=== PATIENT | male | born 1975 | race Caucasian/White ===

== ENCOUNTER 2018-11-17 19:20 | Emergency (ER) | payer OTHER ==
[2018-11-17 19:47] VITALS: BP 144/86; PULSE 79; TEMP 98.3; BMI 30.3
[2018-11-17] MEDS ORDERED: FLUORESCEIN NA 1 EA STRIP ONE (20:09)
[2018-11-17] MEDS ORDERED: TETRACAINE 0.5% OPHTH SOLN 2 ML BOTTLE ONE (20:09)
[2018-11-17] MEDS ORDERED: ERYTHROMYCIN 0.5% OPHTHALMIC OINTMENT 3.5 GM TUBE ONE (20:32)
--- NOTE | 2018-11-17 20:40 | PDOC ---
History of Present Illness - General History Source: Patient Exam Limitations: Language Barrier (Co-worker translated due to a language barrier. ) - History of Present Illness Initial Comments: 11/17/18 20:55 The patient is a 43 year old male, with no significant past medical history of who presents to the emergency department with R eye irritation. The patient states, he was scraping the ceiling when small pieces of paint fell in his R eye. The patient states he started cleaning his eye with tissue paper, however, he quickly stopped due to the irritation.The patient states he feels a warm sensation on his right eye. The patient denies any change in vision or blurry vision. The patient denies chest pain, shortness of breath, headache or dizziness. Allergies: NKDA Past surgical history: None reported Social history: social drinker. Tobacco use (half a pack of cigarettes daily). <Rhys Bearden - Last Filed: 11/17/18 23:02> <Ning Jackson - Last Filed: 11/18/18 03:58> - General Chief Complaint: Eye Problem Stated Complaint: RT EYE IRRITATION, FB SENSATION Time Seen by Provider: 11/17/18 19:29 Past History <Rhys Bearden - Last Filed: 11/17/18 23:02> - Past Medical History COPD: No Other medical history: PT DENIES - Suicide/Smoking/Psychosocial Hx Smoking History: Current every day smoker Have you smoked in the past 12 months: Yes Number of Cigarettes Smoked Daily: 7 Information on smoking cessation initiated: Yes Hx Alcohol Use: ("weekend") <Ning Jackson - Last Filed: 11/18/18 03:58> - Past Medical History Allergies/Adverse Reactions: Allergies Allergy/AdvReac Type Severity Reaction Status Date / Time No Known Allergies Allergy Verified 11/17/18 19:22 Home Medications: Ambulatory Orders Ciprofloxacin 0.3% Eye Drops [Ciloxan 0.3% Eye Drops --] 2 drop OD Q4HWA #1 bottle 11/17/18 Review of Systems - Review of Systems Able to Perform ROS?: Yes Comments:: 11/17/18 20:56 GENERAL/CONSTITUTIONAL: No fever or chills. No weakness. HEAD, EYES, EARS, NOSE AND THROAT:(+) R eye irritation. No change in vision. No ear pain or discharge. No sore throat. CARDIOVASCULAR: No chest pain or shortness of breath. RESPIRATORY: No cough, wheezing, or hemoptysis. GASTROINTESTINAL: No nausea, vomiting, diarrhea or constipation. GENITOURINARY: No dysuria, frequency, or change in urination. MUSCULOSKELETAL: No joint or muscle swelling or pain. No neck or back pain. SKIN: No rash NEUROLOGIC: No headache, vertigo, loss of consciousness, or change in strength/ sensation. ENDOCRINE: No increased thirst. No abnormal weight change. HEMATOLOGIC/LYMPHATIC: No anemia, easy bleeding, or history of blood clots. ALLERGIC/IMMUNOLOGIC: No hives or skin allergy. <Rhys Bearden - Last Filed: 11/17/18 23:02> *Physical Exam - Vital Signs Last Vital Signs Temp Pulse Resp BP Pulse Ox 98.3 F 79 18 144/86 97 11/17/18 19:20 11/17/18 19:20 11/17/18 19:20 11/17/18 19:20 11/17/18 19:20 - Physical Exam Comments: 11/17/18 20:56 GENERAL: Awake, alert, and fully oriented, in no acute distress HEAD: No signs of trauma EYES: (+) moderate erythema lateral and inferior aspect of the conjunctiva sac with 2 minute (1mm) whitish specks seen in lower conjunctiva sac. No other lesions, remainder of eye exam is normal. PERRLA, EOMI, sclera anicteric. ENT: Auricles normal inspection, hearing grossly normal, nares patent, oropharynx clear without exudates. Moist mucosa NECK: Normal ROM, supple, no lymphadenopathy, JVD, or masses LUNGS: Breath sounds equal, clear to auscultation bilaterally. No wheezes, and no crackles HEART: Regular rate and rhythm, normal S1 and S2, no murmurs, rubs or gallops ABDOMEN: Soft, nontender, normoactive bowel sounds. No guarding, no rebound. No masses EXTREMITIES: Normal range of motion, no edema. No clubbing or cyanosis. No cords, erythema, or tenderness NEUROLOGICAL: Cranial nerves II through XII grossly intact. Normal speech, normal gait SKIN: Warm, Dry, normal turgor, no rashes or lesions noted. <Rhys Bearden - Last Filed: 11/17/18 23:02> - Vital Signs Last Vital Signs Temp Pulse Resp BP Pulse Ox 98.3 F 79 18 144/86 97 11/17/18 19:20 11/17/18 19:20 11/17/18 19:20 11/17/18 19:20 11/17/18 19:20 <Ning Jackson - Last Filed: 11/18/18 03:58> Medical Decision Making - Medical Decision Making Documentation has been prepared under my direction and personally reviewed by me in its entirety. I attest that this documented accurately reflects all work, treatment, procedures and medical decision making performed by me. As noted above, this 43-year-old man presents with several hour history of right eye irritation/discomfort after apparent foreign body fell into the lower lid area as he was scraping paint from a ceiling. After patient attempted to remove foreign body, a friend apparently attempted to also remove the foreign body with a tissue. Neither was apparently able to take out the apparent foreign bodies. Patient denies vision changes or any other symptoms other than discomfort in the area of the foreign body. Exam as noted above. 2 drops of tetracaine ophthalmic solution placed in the right eye. Fluorescein strip used to place contrast in the area of the cornea: No evidence of corneal abrasion after area was illuminated with blue light. Then, using sterile technique, sterile normal saline used to irrigate lower conjunctival sac in order to dislodge tiny white foreign bodies. Irrigation was unsuccessful and sterile applicator used to gently attempt direct removal of specks. This also was unsuccessful. Area will be treated with erythromycin ointment: First application placed now. After this, ciprofloxacin ophthalmic solution will be used during the day (2 drops in the right eye every 4 hours while awake). Erythromycin ointment will be used at night. Patient given referral information for ophthalmologists: Dr Almanza/Dr Newell . The patient will call the office on Tuesday morning, November 20 and arrange for follow-up within 48 hours. If symptoms worsens prior to evaluation by foundry patternmaker, patient should return to the ER <Ning Jackson - Last Filed: 11/18/18 03:58> *DC/Admit/Observation/Transfer - Attestations Scribe Attestion: 11/17/18 20:57 Documentation prepared by Rhys Bearden, acting as medical resident for Ning Jackson MD <Rhys Bearden - Last Filed: 11/17/18 23:02> <Ning Jackson - Last Filed: 11/18/18 03:58> Diagnosis at time of Disposition: FB in conjunctival sac Qualifiers: Encounter type: initial encounter Laterality: right Qualified Code(s): T15.11XA - Foreign body in conjunctival sac, right eye, initial encounter - Discharge Dispostion Disposition: HOME Condition at time of disposition: Stable - Prescriptions Prescriptions: Ciprofloxacin 0.3% Eye Drops [Ciloxan 0.3% Eye Drops --] 2 drop OD Q4HWA #1 bottle - Referrals Referrals: Mynor Almanza MD [Staff Physician] - 3 days - Patient Instructions Printed Discharge Instructions: DI for Foreign Body in the Eye Additional Instructions: Erythromycin ointment to lower portion of the right eye at bedtime Ciprofloxacin eyedrops every 4 hours while awake during the day Keep head elevated as much as possible Motrin/Tylenol/Aleve as needed for pain Follow-up with foundry patternmaker (Dr. Almanza/) on November 20 call office at 9 AM on Tuesday Return to ER if you have worsening pain/swelling/vision changes
== END 2018-11-17 20:50 | disposition home or self-care (01) ==
LOC: FER 19:20
DX: T15.11XA Foreign body in conjunctival sac, right eye, initial encounter (principal); X58.XXXA Exposure to other specified factors, initial encounter; Y93.89 Activity, other specified; Y92.89 Other specified places as the place of occurrence of the external cause
CPT/HCPCS: 99282-25